=== PATIENT | female | born 1955 | race Caucasian/White ===

== ENCOUNTER 2020-01-20 08:45 | Inpatient (IN) ==
[2020-01-20] MEDS ORDERED: *HR* Dextrose 50 % in Water (Syg) 50 ML SYRINGE ONE (08:53)
[2020-01-20] MEDS ORDERED: 0.9 % Sodium Chloride 1,000 ML IV ONE (09:00)
[2020-01-20 09:09] LABS: Basophils % 0.5 %; Eosinophils % 0.6 %; Hematocrit 37.7 % (35.3-44.9); Hemoglobin 12.4 g/dL (11.5-15.4); Immature Granulocytes % 0.3 % (0-4); Lymphocytes # 0.5 K/mcL (0.6-4.6); Lymphocytes % 7.9 %; Mean Corpuscular HGB Conc 32.9 g/dL (31.6-35.5); Mean Corpuscular Hemoglobin 32.8 pg (28.0-33.3); Mean Corpuscular Volume 99.7 fL (83.0-100.0); Mean Platelet Volume 10.6 fL (9.4-12.4); Monocytes # 0.5 K/mcL (0.0-1.3); Monocytes % 8.2 %; Neutrophils # 5.2 K/mcL (1.6-8.9); Platelet Count 181 K/mcL (140-400); Red Blood Count 3.78 M/mcL (3.82-4.97); Red Cell Distribution Width 14.3 % (11.5-14.5); Segmented Neutrophils % 82.5 %; White Blood Count 6.2 K/mcL (4.3-11.1)
[2020-01-20 09:27] LABS: Alanine Aminotransferase 9 Units/L (7-52); Albumin 3.4 g/dL (3.5-5.7); Albumin/Globulin Ratio 0.9 (1.1-2.2); Alkaline Phosphatase 105 Units/L (34-104); Aspartate Amino Transferase 20 Units/L (13-39); BUN/Creatinine Ratio 16 (6-26); Blood Urea Nitrogen 32 mg/dL (8-23); Calcium 9.1 mg/dL (8.6-10.3); Carbon Dioxide 24 mEq/L (23-29); Chloride 107 mEq/L (98-107); Glucose 50 mg/dL (70-105); Osmolality,Calculated 292 (280-300); Potassium 4.6 mEq/L (3.5-5.1); Sodium 139 mEq/L (136-145); Total Protein 7.4 g/dL (6.4-8.9); Troponin I < 0.03 ng/mL (< 0.04); eGFR For African Americans 31 (> 60); eGFR For Non-African Americans 26 (> 60)
[2020-01-20 09:43] LABS: INR 1.2; Prothrombin Time 13.6 Seconds (9.4-12.1)
[2020-01-20] MEDS ORDERED: Isovue-370 500 ML BOTTLE IVP ONE (10:26)
[2020-01-20] MEDS ORDERED: amLODIPine 5 MG TABLET PO STA (10:30)
[2020-01-20] MEDS ORDERED: lisinopriL 20 MG TABLET PO ONE (10:31)
[2020-01-20] MEDS ORDERED: *HR* Dextrose 50 % in Water (Vial) 50 ML VIAL IVP ONE (10:34)
[2020-01-20] MEDS ORDERED: *HR* Dextrose 50 % in Water (Syg) 50 ML SYRINGE IVP ONE (10:45)
[2020-01-20] MEDS ORDERED: D5% in 0.9% NACL 1,000 ML IVC SCH (11:45)
[2020-01-20] MEDS ORDERED: Furosemide 40 MG/4 ML VIAL IVP ONE (12:22)
[2020-01-20] MEDS ORDERED: D10% in Water 500 ML IVC SCH ×2 (12:30→14:00)
[2020-01-20] MEDS ORDERED: *HR* Labetalol 20 MG/4 ML SYRINGE IVP ONE (13:29)
[2020-01-20] MEDS ORDERED: Acetaminophen 325 MG TABLET PO PRN (13:31)
[2020-01-20] MEDS ORDERED: Naloxone 0.4 MG/ML INJ IVP PRN (13:31)
[2020-01-20] MEDS ORDERED: Ondansetron ODT 4 MG TAB.RAPDIS SL PRN (13:31)
[2020-01-20] MEDS ORDERED: *HR* Enoxaparin 30 MG/0.3 ML SYRINGE SQ ONE ×2 (13:56→23:00)
[2020-01-20] MEDS: D10% in Water 500 ML IVC SCH ×2 (15:55→22:06)
[2020-01-20] MEDS: Spironolactone 25 MG TABLET PO SCH (21:53)
[2020-01-20] MEDS: lisinopriL 5 MG TABLET PO SCH (21:53)
[2020-01-20] MEDS: Furosemide 40 MG/4 ML VIAL IVP SCH (21:54)
[2020-01-20 22:04] LABS: Bilirubin,Urine Negative (Negative); Blood,Urine Small (Negative); Clarity,Urine Clear (Clear); Color,Urine Yellow (Yellow); Glucose,Urine (UA) 100 mg/dL (Normal); Ketones,Urine Negative (Negative); Leukocyte Esterase,Urine Negative (Negative); Nitrite,Urine Negative (Negative); Protein,Urine >=300 mg/dL (Neg-Trace); Specific Gravity,Urine >= 1.030 (1.010-1.025); Urobilinogen,Urine Normal (Normal)
[2020-01-20 22:12] LABS: Bacteria,Urine None Seen per hpf (None-Few); RBC,Urine 0-3 per hpf (0-3); Renal Epithelial Cells,Urine Moderate per hpf (None-Few); Squamous Epithelial Cell,Urine Many per lpf (None-Few); WBC,Urine 0-3 per hpf (0-3)
[2020-01-21] MEDS: D10% in Water 500 ML IVC SCH (06:40)
[2020-01-21 07:13] LABS: Basophils % 0.7 %; Eosinophils # 0.2 K/mcL (0.0-0.6); Eosinophils % 3.5 %; Hematocrit 33.3 % (35.3-44.9); Hemoglobin 10.8 g/dL (11.5-15.4); Immature Granulocytes % 0.5 % (0-4); Lymphocytes # 0.6 K/mcL (0.6-4.6); Lymphocytes % 11.2 %; Mean Corpuscular HGB Conc 32.4 g/dL (31.6-35.5); Mean Corpuscular Hemoglobin 32.4 pg (28.0-33.3); Mean Platelet Volume 11.2 fL (9.4-12.4); Monocytes # 0.7 K/mcL (0.0-1.3); Monocytes % 11.9 %; Neutrophils # 4.1 K/mcL (1.6-8.9); Platelet Count 183 K/mcL (140-400); Red Blood Count 3.33 M/mcL (3.82-4.97); Red Cell Distribution Width 14.5 % (11.5-14.5); Segmented Neutrophils % 72.2 %; White Blood Count 5.7 K/mcL (4.3-11.1)
[2020-01-21] MEDS: lisinopriL 5 MG TABLET PO SCH ×2 (08:15→21:52)
[2020-01-21] MEDS: Spironolactone 25 MG TABLET PO SCH (08:15)
[2020-01-21] MEDS: Furosemide 40 MG/4 ML VIAL IVP SCH ×2 (08:15→21:51)
[2020-01-21] MEDS: amLODIPine 5 MG TABLET PO SCH (08:15)
[2020-01-21 09:22] LABS: Calcium 8.5 mg/dL (8.6-10.3); Chol/HDL Ratio 2.8 (0-4.9); Potassium 4.6 mEq/L (3.5-5.1)
[2020-01-21] MEDS: *HR* Enoxaparin 30 MG/0.3 ML SYRINGE SQ SCH (17:28)
[2020-01-21] MEDS: hydrALAZINE 25 MG TABLET PO SCH (17:28)
[2020-01-22] MEDS: hydrALAZINE 25 MG TABLET PO SCH ×4 (00:27→23:22)
[2020-01-22 05:59] LABS: Calcium 8.4 mg/dL (8.6-10.3); Potassium 4.6 mEq/L (3.5-5.1)
[2020-01-22] MEDS: lisinopriL 5 MG TABLET PO SCH (08:58)
[2020-01-22] MEDS: Furosemide 40 MG/4 ML VIAL IVP SCH ×2 (08:59→10:38)
[2020-01-22] MEDS: amLODIPine 5 MG TABLET PO SCH (08:59)
[2020-01-22] MEDS: Albumin 25% 25gram/100mL 25 GM/100 ML IV.SOLN IVPB SCH (14:36)
[2020-01-22] MEDS: *HR* Enoxaparin 30 MG/0.3 ML SYRINGE SQ SCH (16:58)
[2020-01-22 20:03] LABS: Estimated Average Glucose 114 mg/dl
[2020-01-22 20:10] LABS: Complement C3 122 mg/dL (87-200)
[2020-01-23 05:48] LABS: Basophils % 0.6 %; Eosinophils # 0.3 K/mcL (0.0-0.6); Hematocrit 33.8 % (35.3-44.9); Hemoglobin 10.9 g/dL (11.5-15.4); Immature Granulocytes % 0.4 % (0-4); Lymphocytes # 0.5 K/mcL (0.6-4.6); Lymphocytes % 9.5 %; Mean Corpuscular HGB Conc 32.2 g/dL (31.6-35.5); Mean Corpuscular Hemoglobin 32.5 pg (28.0-33.3); Mean Corpuscular Volume 100.9 fL (83.0-100.0); Mean Platelet Volume 10.2 fL (9.4-12.4); Monocytes # 0.7 K/mcL (0.0-1.3); Monocytes % 12.1 %; Neutrophils # 3.8 K/mcL (1.6-8.9); Platelet Count 169 K/mcL (140-400); Red Blood Count 3.35 M/mcL (3.82-4.97); Red Cell Distribution Width 14.3 % (11.5-14.5); Segmented Neutrophils % 71.4 %; White Blood Count 5.4 K/mcL (4.3-11.1)
[2020-01-23 05:51] LABS: VBG Ionized Calcium 1.13 mmol/L (1.15-1.35)
[2020-01-23 06:01] LABS: Albumin 3.1 g/dL (3.5-5.7); Calcium 8.6 mg/dL (8.6-10.3); Magnesium 2.2 mg/dL (1.6-2.6); Phosphorous 4.8 mg/dL (2.7-4.5); Potassium 4.6 mEq/L (3.5-5.1)
[2020-01-23] MEDS: amLODIPine 5 MG TABLET PO SCH (09:26)
[2020-01-23] MEDS: hydrALAZINE 25 MG TABLET PO SCH ×3 (09:26→23:40)
[2020-01-23] MEDS: Albumin 25% 25gram/100mL 25 GM/100 ML IV.SOLN IVPB SCH ×2 (09:26→16:29)
[2020-01-23] MEDS: Furosemide 40 MG/4 ML VIAL IVP SCH ×2 (11:09→18:46)
[2020-01-23] MEDS: Calcium Acetate 667 MG CAPSULE PO SCH (16:29)
[2020-01-23] MEDS: *HR* Enoxaparin 30 MG/0.3 ML SYRINGE SQ SCH (17:50)
[2020-01-24] MEDS: Albumin 25% 25gram/100mL 25 GM/100 ML IV.SOLN IVPB SCH (05:10)
[2020-01-24 05:33] LABS: Basophils % 0.6 %; Eosinophils # 0.3 K/mcL (0.0-0.6); Eosinophils % 4.7 %; Hematocrit 33.2 % (35.3-44.9); Hemoglobin 10.6 g/dL (11.5-15.4); Immature Granulocytes % 0.2 % (0-4); Lymphocytes # 0.5 K/mcL (0.6-4.6); Lymphocytes % 8.7 %; Mean Corpuscular HGB Conc 31.9 g/dL (31.6-35.5); Mean Corpuscular Hemoglobin 32.4 pg (28.0-33.3); Mean Corpuscular Volume 101.5 fL (83.0-100.0); Mean Platelet Volume 11.1 fL (9.4-12.4); Monocytes # 0.6 K/mcL (0.0-1.3); Monocytes % 12.1 %; Neutrophils # 3.9 K/mcL (1.6-8.9); Platelet Count 187 K/mcL (140-400); Red Blood Count 3.27 M/mcL (3.82-4.97); Red Cell Distribution Width 14.5 % (11.5-14.5); Segmented Neutrophils % 73.7 %; White Blood Count 5.3 K/mcL (4.3-11.1)
[2020-01-24 05:51] LABS: Calcium 9.2 mg/dL (8.6-10.3); Potassium 4.5 mEq/L (3.5-5.1)
[2020-01-24] MEDS: Furosemide 40 MG/4 ML VIAL IVP SCH (08:19)
[2020-01-24] MEDS: hydrALAZINE 25 MG TABLET PO SCH (08:19)
[2020-01-24] MEDS: amLODIPine 5 MG TABLET PO SCH (08:19)
[2020-01-24] MEDS: Calcium Acetate 667 MG CAPSULE PO SCH (08:19)
[2020-01-24 08:46] LABS: Protein/Creatinine Ratio,Urine 5.49 mg/mg (0.00-0.20)
[2020-01-24 11:44] VITALS: BP 163/77
[2020-01-25 09:37] LABS: Kappa Qnt Free Light Chains 138.15 mg/L (3.30-19.40); Lambda Qnt Free Light Chains 89.99 mg/L (5.71-26.30)
[2020-01-25 11:12] LABS: ANA IgG by ELISA NONE DETECTED (None Detected)
[2020-01-26 17:01] LABS: Alpha 2 Globulin (PEP) 0.71 g/dL (0.48-1.05); Beta Globulin (PEP) 0.77 g/dL (0.48-1.10)
[2020-01-27 07:23] LABS: IFE Reflexed NOT DONE
== END 2020-01-24 11:45 | disposition short-term general hospital (02) | DRG 291 ==
LOC: EMEROOGRE 08:45 → INPGRE 08:45
PROVIDERS: ADMIT Family Medicine; ATTEND Family Medicine